=== PATIENT | female | born 1965 | race Caucasian/White ===

== ENCOUNTER 2021-10-14 22:27 | Emergency (ER) | payer MEDICAID ==
[~2021-10-14] VITALS: Ht 157.5 cm; Wt 70.5 kg
[~2021-10-14 22:27] MED LIST: AZIT250T PO; FERR324T23 PO; NO HOME MEDS; depo-provera PO
[2021-10-15 02:48] VITALS: BP 158/87
[2021-10-15] MEDS ORDERED: aspirin 325mg tablet PO ONE (03:45)
== END 2021-10-15 04:18 | disposition home or self-care (01) ==
LOC: ER 22:27
DX: S86.892A Other injury of other muscle(s) and tendon(s) at lower leg level, left leg, initial encounter (principal); Z79.899 Other long term (current) drug therapy; X58.XXXA Exposure to other specified factors, initial encounter; Y93.89 Activity, other specified; Y92.89 Other specified places as the place of occurrence of the external cause; Y99.8 Other external cause status
CPT/HCPCS: 93971; 99284

== ENCOUNTER 2021-10-25 22:43 | Emergency (ER) | payer MEDICAID ==
[~2021-10-25 22:43] MED LIST changes: -AZIT250T PO; -FERR324T23 PO; -depo-provera PO
[2021-10-26] MEDS ORDERED: NAPR-56 PO (11:03)
[2021-10-26] MEDS ORDERED: DICL20GE TOP (11:03)
== END 2021-10-25 23:04 | disposition left against medical advice (07) ==
LOC: ER 22:43
DX: M79.606 Pain in leg, unspecified (principal); Z53.21 Procedure and treatment not carried out due to patient leaving prior to being seen by health care provider

== ENCOUNTER 2021-10-26 06:03 | Emergency (ER) | payer MEDICAID ==
[~2021-10-26] VITALS: Ht 157.5 cm; Wt 68.2 kg
[2021-10-26 10:59] VITALS: BP 148/80
[2021-10-26] MEDS ORDERED: NAPR-56 PO (11:03)
[2021-10-26] MEDS ORDERED: DICL20GE TOP (11:03)
[2021-10-26] MEDS ORDERED: ketorolac trometh inj. 60 MG/2 ML VIAL IM ONE (11:05)
--- NOTE | 2021-10-26 11:35 | NUR ---
Pt given and understands d/c instructions. Ambulatory with a steady gait.
== END 2021-10-26 11:35 | disposition home or self-care (01) ==
LOC: ER 06:04
DX: M79.605 Pain in left leg (principal); Z79.899 Other long term (current) drug therapy; Z79.2 Long term (current) use of antibiotics
CPT/HCPCS: 96372; 99283; J1885